=== PATIENT | male | born 1975 | race Caucasian/White ===

== ENCOUNTER 2017-01-08 20:07 | Emergency (ER) | payer OTHER ==
[~2017-01-08] VITALS: Ht 177.8 cm; Wt 72.6 kg
--- NOTE | ~2017-01-08 | CR72 ---
[facility] A Service of [facility] RADIOLOGY TEXT RESULTS PATIENT: SAMANTHA MURCIA LOCATION: [facility] : 73 UNIT #: [id number] AGE: [address]: Terrell Dasilva PAC SEX: M ORDER DR: [id number] [facility] [place], [place] [address] [id number] E MR#: [id number] Acc #: [id number] NAME: SAMANTHA MURCIA. : 1975 SEX: M STUDY DATE/TIME: 01/08/2017 20:57 UNIT: [facility] ROOM: STUDY DESCRIPTION: CR Chest Single View Portable Attending Physician: Terrell Dasilva P.A.-C. Ordering Physician: Ed Doctor [id number] [facility] REPORT This report is preliminary unless electronic signature is present EXAM Frontal chest, 01/08/2017 INDICATION 41-year-old male with chest pain, left-sided abdominal pain. Symptoms began 2 years ago, worse the last 2 weeks. TECHNIQUE Frontal chest was performed. COMPARISON 05/22/2015 FINDINGS The cardiac silhouette unremarkable. The vascularity is normal. The lungs are hyperinflated but clear. There is old healed granulomatous disease. No pneumothorax. No effusion. IMPRESSION Emphysema and chronic lung changes. No definite superimposed active disease. Dictated by... Gregorio Ambrosio M.D. THIS IS AN ELECTRONICALLY VERIFIED REPORT Gregorio Ambrosio M.D. at 01/09/2017 2:17 PM Patrice TD: 01/09/2017 09:18 JOB #: [id number] MEDICAL IMAGING REPORT [facility] A Service of [facility] RADIOLOGY TEXT RESULTS PATIENT: SAMANTHA MURCIA LOCATION: [facility] : 73 UNIT #: [id number] AGE: [address]: Terrell Dsailva PAC SEX: M ORDER DR: Page 1 of 1 COPY
--- NOTE | ~2017-01-08 | EKG ---
PATIENT: [place], [facility] UNIT #: [id number] Ventricular Rate: 101 BPM Atrial Rate: 101 BPM P-R Interval: 122 ms QRS Duration: 92 ms Q-T Interval: 354 ms QTC Calculation(Bezet): 459 ms P [place]: 80 degrees Calculated R [place]: 81 degrees Calculated T [place]: 59 degrees Diagnosis Line: Sinus tachycardia Diagnosis Line: Otherwise normal ECG Diagnosis Line: No previous ECGs available Diagnosis Line: Confirmed by JT FRANKS MD ([id number]) on 01/09/2017 Diagnosis Line: 7:14:05 PM INTERPRETING MD: G[place]EN [place]
--- NOTE | ~2017-01-08 | CT2 ---
[facility] A Service of [facility] RADIOLOGY TEXT RESULTS PATIENT: SAMANTHA MURCIA LOCATION: [facility] UNIT : 73 UNIT #: [id number] AGE: [address]: Terrell Dasilva PAC SEX: M ORDER DR: [id number] [facility]. [place], [place] [address] [id number] E MR#: [id number] Acc #: [id number] NAME: SAMANTHA MURCIA. : 1975 SEX: M STUDY DATE/TIME: 01/09/2017 1:52 UNIT: [facility] ROOM: STUDY DESCRIPTION: CT Abd and Pelv W Cont Attending Physician: Terrell Dasilva P.A.-C. Ordering Physician: Terrell Dasilva P.A.-C. Primary Care Physician: [facility] REPORT This report is preliminary unless electronic signature is present EXAM CT abdomen and pelvis with contrast, 01/09/2017 HISTORY 41-year-old male in the ED complaining of 3-week history of left flank pain. TECHNIQUE CT examination of the abdomen and pelvis was performed with IV contrast. GI contrast was not ordered or was not consumed by the patient. This CT exam was performed with one or more of the following radiation dose reduction techniques: automatic exposure control, adjustment of mA and/or kV according to patient size, and iterative reconstruction. FINDINGS ABDOMEN FINDINGS: Liver, pancreas, spleen and kidneys are normal in size and appearance. No gallbladder distension or bile duct dilatation. Possible mild colon wall thickening in the sigmoid and lower descending colon, poorly evaluated without GI contrast. Correlate for evidence of acute colitis. Minimal scattered colonic diverticula in the left hemicolon. Small bowel and colon are otherwise normal in caliber and appearance. The appendix is normal. PELVIS FINDINGS: Bladder, prostate and rectum are within normal limits. No inguinal hernia. Limited lung base images show no active disease in the lower chest. IMPRESSION 1. Possible mild colon wall thickening involving the rectosigmoid and lower descending colon. This is somewhat incompletely assessed [facility] A Service of [facility] RADIOLOGY TEXT RESULTS PATIENT: SAMANTHA MURCIA LOCATION: [facility] #: [id number] : 73 UNIT #: [id number] AGE: [address]: Terrell Dasilva PAC SEX: M ORDER DR: without GI contrast administration. Active colitis is suspected. Consider infectious colitis or inflammatory bowel disease. No evidence of abscess, bowel obstruction or bowel perforation. 2. Remaining segments of small bowel and colon appear normal. The appendix is normal. 3. Remainder of the examination is negative. Dictated by... Evgeny Saunders M.D. THIS IS AN ELECTRONICALLY VERIFIED REPORT Evgeny Saunders M.D. at 01/09/2017 9:57 PM Gracia TD: 01/09/2017 10:32 JOB #: [id number] MEDICAL IMAGING REPORT Page 1 of 1 COPY
[~2017-01-08 20:07] MED LIST: BACTRIM DS TABL1 TA1 PO; DOXYCYCLINE150 MG PO; MOTRIN600 M1 PO; NO MEDICATIONS; PHENERGAN DM1 ML PO; TYLOX1 CAP 5/50; TYLOX1 CAP 5/50 PO; ZOVIRAX200 MG PO
[2017-01-08 21:09] LABS: BASOPHIL% 0.4 % (0-2.5); EOSINOPHIL# 0.1 X10e3 (0-0.7); EOSINOPHIL% 0.5 % (0.0-7.0); HEMATOCRIT 44.9 % (38.0-50.0); HEMOGLOBIN 14.8 gm/dL (13.0-16.0); LYMPHOCYTE# 2.4 X10e3 (1.0-3.5); LYMPHOCYTE% 24.7 % (17.0-45.0); MEAN CELL VOLUME 87.2 FL (83-96); MEAN CORPUSCULAR HEMOGLOBIN 28.7 PG (28-34); MEAN CORPUSCULAR HGB CONC 32.9 g/dL (30-36); MEAN PLATELET VOLUME 8.2 FL (6.5-11.5); MONOCYTE# 0.5 X10e3 (0-1.0); NEUTROPHIL# 6.8 X10e3 (1.5-7.1); NEUTROPHIL% 69.4 % (40-75); PLATELET COUNT 258 X10e3 (140-420); RED BLOOD COUNT 5.14 X10e (3.90-5.60); RED CELL DISTRIBUTION WIDTH 14.4 % (11.0-15.5); WHITE BLOOD COUNT 9.9 X10e3 (4.0-10.5)
[2017-01-08 21:10] LABS: DIFF IND NO
[2017-01-08 21:20] LABS: PARTIAL THROMBOPLASTIN TIME 32.7 SECONDS (23.5-31.3); PROTHROMBIN TIME (PATIENT) 11.1 SECONDS (10.0-11.7)
[2017-01-08 21:35] LABS: ALBUMIN SERUM 4.3 g/dL (3.5-5.0); BILIRUBIN,TOTAL 0.5 mg/dL (0.2-2.0); BUN/CREATININE RATIO 13.33; CALCIUM SERUM 9.4 mg/dL (8.4-10.2); CREATININE SERUM 0.9 mg/dL (0.6-1.4); POTASSIUM 3.9 mmol/L (3.5-5.1); PROTEIN TOTAL SERUM 7.5 g/dL (6.0-8.3)
[2017-01-08 21:45] LABS: BILIRUBIN, DIRECT 0.1 mg/dL (0.0-0.2); BILIRUBIN,INDIRECT 0.4 mg/dL (0.0-0.9)
[2017-01-08 22:26] LABS: POC - CKMB 1.2 ng/mL (0.0-7.9); POC - TROPONIN <0.05 ng/mL (<=0.05)
[2017-01-09 02:09] LABS: POC - CKMB 1.2 ng/mL (0.0-7.9); POC - TROPONIN <0.05 ng/mL (<=0.05)
[2017-01-09 02:23] LABS: URINE SOURCE CLEAN CATCH
[2017-01-09 02:28] LABS: URINE APPEARANCE CLEAR; URINE BILIRUBIN NEG (NEG); URINE BLOOD NEG (NEG); URINE COLOR YELLOW; URINE GLUCOSE NEG (NEG); URINE KETONE NEG (NEG); URINE LEUKOCYTE ESTERASE NEG (NEG); URINE NITRATE NEG (NEG); URINE PH 5.5 (5-8); URINE PROTEIN NEG (NEG); URINE SPECIFIC GRAVITY 1.044 (1.003-1.035); URINE UROBILINOGEN 0.2 MG/DL (NEG)
[2017-01-09 02:31] LABS: CULTURE INDICATED? NO
[2017-01-29] MEDS ORDERED: MULTI-DAY VITA1 EACH PO (09:33)
[2017-01-29] MEDS ORDERED: SUBOXONE 8 MG-1 EAC1 SL (09:34)
== END 2017-01-09 03:04 | disposition home or self-care (01) ==
LOC: CED 20:07
PROVIDERS: Physician Assistant
DX: K52.9 Noninfective gastroenteritis and colitis, unspecified (principal); F17.210 Nicotine dependence, cigarettes, uncomplicated; Z79.899 Other long term (current) drug therapy
CPT/HCPCS: 36415; 71010; 74177; 80048; 80076; 81003; 82553; 84484; 85025; 85610; 85730; 93005; 96360; 99285; Q9967

== ENCOUNTER 2017-01-28 15:38 | Emergency (ER) | payer OTHER ==
[~2017-01-28] VITALS: Ht 177.8 cm; Wt 69.8 kg
[2017-01-28 16:22] LABS: BASOPHIL# 0.1 X10e3 (0-0.3); BASOPHIL% 0.6 % (0-2.5); EOSINOPHIL# 0.1 X10e3 (0-0.7); EOSINOPHIL% 0.7 % (0.0-7.0); HEMATOCRIT 41.9 % (38.0-50.0); HEMOGLOBIN 14.3 gm/dL (13.0-16.0); LYMPHOCYTE# 3.6 X10e3 (1.0-3.5); LYMPHOCYTE% 33.9 % (17.0-45.0); MEAN CELL VOLUME 86.9 FL (83-96); MEAN CORPUSCULAR HEMOGLOBIN 29.7 PG (28-34); MEAN CORPUSCULAR HGB CONC 34.2 g/dL (30-36); MEAN PLATELET VOLUME 8.5 FL (6.5-11.5); MONOCYTE# 0.4 X10e3 (0-1.0); MONOCYTE% 3.4 % (3.0-12.0); NEUTROPHIL# 6.4 X10e3 (1.5-7.1); NEUTROPHIL% 61.4 % (40-75); PLATELET COUNT 231 X10e3 (140-420); RED BLOOD COUNT 4.82 X10e (3.90-5.60); RED CELL DISTRIBUTION WIDTH 14.1 % (11.0-15.5); WHITE BLOOD COUNT 10.5 X10e3 (4.0-10.5)
[2017-01-28 16:23] LABS: DIFF IND NO
[2017-01-28 16:50] LABS: ALBUMIN SERUM 4.6 g/dL (3.5-5.0); BILIRUBIN, DIRECT 0.1 mg/dL (0.0-0.2); BILIRUBIN,INDIRECT 0.6 mg/dL (0.0-0.9); BILIRUBIN,TOTAL 0.7 mg/dL (0.2-2.0); BUN/CREATININE RATIO 11.11; CALCIUM SERUM 9.3 mg/dL (8.4-10.2); CREATININE SERUM 0.9 mg/dL (0.6-1.4); POTASSIUM 3.7 mmol/L (3.5-5.1); PROTEIN TOTAL SERUM 7.5 g/dL (6.0-8.3)
[2017-01-29] MEDS ORDERED: MULTI-DAY VITA1 EACH PO (09:33)
[2017-01-29] MEDS ORDERED: SUBOXONE 8 MG-1 EAC1 SL (09:34)
== END 2017-01-28 18:32 | disposition home or self-care (01) ==
LOC: CED 15:38
DX: K52.9 Noninfective gastroenteritis and colitis, unspecified (principal); E78.5 Hyperlipidemia, unspecified; F17.210 Nicotine dependence, cigarettes, uncomplicated
CPT/HCPCS: 36415; 80048; 80076; 83690; 85025; 99284

== ENCOUNTER → 2017-01-29 | Day surgery (SDC) | payer OTHER ==
[~2017-01-29] MED LIST changes: +MULTI-DAY VITA1 EACH PO; +SUBOXONE 8 MG-1 EAC1 SL
--- NOTE | ~2017-01-29 | OR ---
Unit #: [id number] #: [id number] Patient: SAMANTHA MURCIA [id number] [address] [address] [id number] O MR#: [id number] NAME: SAMANTHA MURCIA ROOM: Date of Procedure: 01/29/2017 Admission Date: 01/29/2017 Surgeon: Jace Bingham M.D. : 1975 Attending Physician: Jace Bingham M.D. Referring Physician: Jace Bingham M.D. Primary Care Physician: [facility] OPERATIVE REPORT PROCEDURE PERFORMED Colonoscopy to cecum with snare polypectomy. INDICATIONS FOR PROCEDURE Left upper quadrant pain, left lower quadrant pain, blood in the stool recurrent, CT scan suggests possible left-sided colitis, undergoing colonoscopy for evaluation. MEDICATION Monitored anesthesia. POSTOPERATIVE FINDINGS 1. Good prep, no evidence of any colitis. 2. Polyps, 6 to 8 mm, transverse colon, snared. 3. Polyp, descending colon, 5 mm, snared. 4. Large internal hemorrhoids, most likely the cause of bleeding. PLAN Consider hemorrhoidal banding. Follow up on the pathology report and repeat colonoscopy in 5 years. DESCRIPTION OF PROCEDURE The patient was explained of the procedure, risks, and benefits along with the risks and benefits of anesthesia. He was brought to the endoscopy room. Propofol anesthesia was given. Rectal exam was done, which was normal. Colonoscope was lubricated, passed up the rectum, advanced under direct vision all the way to the cecum. Cecum was identified by ileocecal valve and appendiceal orifice. Terminal ileum was intubated. It shows normal mucosa. I then started to pull the scope out carefully looking. Two polyps were seen as described. The colonic mucosa was otherwise normal. I retroflexed in the rectum. Internal hemorrhoids were seen. The scope was gently pulled out. He tolerated it well. Dictated by... Mecca [place]/jack TD: 01/30/2017 08:16 JOB #: [id number] Unit #: [id number] #: [id number] Patient: SAMANTHA MURCIA CC: [facility] OPERATIVE REPORT Page 1 of 1 X Jace Bingham MD PROCEDURE OPERATIVE NOTE
== END | disposition home or self-care (01) ==
LOC: COPS 08:38
DX: D12.3 Benign neoplasm of transverse colon (principal); D12.4 Benign neoplasm of descending colon; K64.8 Other hemorrhoids; I10 Essential (primary) hypertension; F17.210 Nicotine dependence, cigarettes, uncomplicated
CPT/HCPCS: 88305